=== PATIENT | female | born 1985 | race Caucasian/White ===

== ENCOUNTER 2017-11-02 12:05 | Emergency (ER) | payer BC ==
[2017-11-02 13:20] VITALS: BP 116/72
--- NOTE | 2017-11-02 14:24 | UC ---
Respiratory Complaint HPI - HPI Summary HPI Summary: 32F presents with cough for past couple days. She states initially the cough was dry and today is started to become productive. She denies any other symptoms. She denies any sore throat, sinus congestion, headache, fever, abdominal pain, SOB, chest pain, fatigue. She denies any n/v. She tried some otc cough medication with some relief. She does not smoke and she has no medical conditions. - History of Current Complaint Chief Complaint: UCRespiratory Stated Complaint: COUGH Time Seen by Provider: 11/02/17 14:18 Hx Last Menstrual Period: LAST WEEK Pain Intensity: 0 - Allergies/Home Medications Allergies/Adverse Reactions: Allergies Allergy/AdvReac Type Severity Reaction Status Date / Time No Known Allergies Allergy Verified 11/02/17 13:16 PMH/Surg Hx/FS Hx/Imm Hx Endocrine History: Other Other Endocrine History: no DM Respiratory History: Other Other Respiratory History: no asthma - Surgical History Surgical History: Yes Surgery Procedure, Year, and Place: T&A. Tubal ligation - Family History Known Family History: Negative: Respiratory Disease - Social History Alcohol Use: Occasionally Substance Use Type: None Smoking Status (MU): Never Smoked Tobacco - Immunization History Most Recent Influenza Vaccination: NOT THIS YR Most Recent Tetanus Shot: WITHIN RECENT PAST Review of Systems Constitutional: Negative Respiratory: Cough Cardiovascular: Negative All Other Systems Reviewed And Are Negative: Yes Physical Exam Triage Information Reviewed: Yes Appearance: Well-Appearing Vital Signs: Initial Vital Signs Temp 98 F 11/02/17 13:16 Pulse 60 11/02/17 13:16 Resp 16 11/02/17 13:16 BP 116/72 11/02/17 13:16 Pulse Ox 100 11/02/17 13:16 Vital Signs Reviewed: Yes Eyes: Positive: Conjunctiva Clear ENT: Positive: Normal ENT inspection, Pharynx normal, TMs normal Neck: Positive: Supple, Nontender, No Lymphadenopathy Respiratory: Positive: Lungs clear, Normal breath sounds, Other: - egophony Cardiovascular: Positive: RRR Abdomen Description: Positive: Nontender, Soft Bowel Sounds: Positive: Present Musculoskeletal Exam: Normal Neurological Exam: Normal Psychological Exam: Normal Skin Exam: Normal UC Diagnostic Evaluation - Laboratory O2 Sat by Pulse Oximetry: 100 Respiratory Course/Dx - Course Course Of Treatment: 32F presents with cough for past couple days. She states initially the cough was dry and today is started to become productive. She denies any other symptoms. She denies any sore throat, sinus congestion, headache, fever, abdominal pain, SOB, chest pain, fatigue. She denies any n/v. She tried some otc cough medication with some relief. She does not smoke and she has no medical conditions. on exam lungs CTA. neg egophony. due not suspect flu. will treat with tessalon. patient understand and agrees with plan. - Differential Dx/Diagnosis Differential Diagnosis/HQI/PQRI: Bronchitis, Influenza, Lower Resp Infection Provider Diagnoses: bronchitis Discharge - Discharge Plan Condition: Good Disposition: HOME Prescriptions: Benzonatate CAP* [Tessalon 100 MG CAP*] 100 mg PO TID #21 cap Patient Education Materials: Acute Bronchitis (ED) Referrals: Tyrese Emery DO [Primary Care Provider] - Additional Instructions: Use Tessalon three times a day for cough Use humidifier or place warm bowls of water around the room for cough Cough can last up to 4 weeks Follow up with primary care physician in 5 days Return to ED if develop any new or worsening symptoms
== END 2017-11-02 14:42 | disposition home or self-care (01) ==
LOC: UCCORT 12:05
DX: J40 Bronchitis, not specified as acute or chronic (principal)
CPT/HCPCS: 99212; G0463

== ENCOUNTER 2018-02-24 10:04 | Emergency (ER) | payer BC ==
[2018-02-24 10:33] VITALS: BP 111/63
--- NOTE | 2018-02-24 10:52 | UC ---
General HPI - HPI Summary HPI Summary: 1 year old piercing R nare that got red 3 days ago. pt removed piercing on day 2. area still red and swelling despite saline flush and peroxide tx's. pt squeezed puss from site. no hx DM or MRSA. area continues to swell. no fever. - History of Current Complaint Chief Complaint: UCSkin Stated Complaint: SKIN COMPLAINT Time Seen by Provider: 02/24/18 10:45 Hx Obtained From: Patient Hx Last Menstrual Period: 02/01/18 Onset/Duration: Gradual Onset Timing: Constant Pain Intensity: 4 Aggravating: nothing Alleviating: nothing Associated Signs & Symptoms: Negative: Fever - Allergy/Home Medications Allergies/Adverse Reactions: Allergies Allergy/AdvReac Type Severity Reaction Status Date / Time No Known Allergies Allergy Verified 02/24/18 10:33 PMH/Surg Hx/FS Hx/Imm Hx Previously Healthy: Yes - Surgical History Surgical History: Yes Surgery Procedure, Year, and Place: T&A. Tubal ligation - Family History Known Family History: Positive: None Negative: Respiratory Disease - Social History Occupation: Employed Full-time Lives: With Family Alcohol Use: Occasionally Substance Use Type: None Smoking Status (MU): Never Smoked Tobacco - Immunization History Most Recent Influenza Vaccination: NOT THIS YR Most Recent Tetanus Shot: WITHIN RECENT PAST Vaccination Up to Date: Yes Review of Systems Constitutional: Negative Skin: Rash - R nare Eyes: Negative ENT: Negative Respiratory: Negative Cardiovascular: Negative Gastrointestinal: Negative Genitourinary: Negative Motor: Negative Neurovascular: Negative Musculoskeletal: Negative Neurological: Negative Psychological: Negative Is Patient Immunocompromised?: No All Other Systems Reviewed And Are Negative: No Physical Exam Triage Information Reviewed: Yes Appearance: Well-Appearing Vital Signs: Initial Vital Signs Temp 99.3 F 02/24/18 10:27 Pulse 75 02/24/18 10:27 Resp 18 02/24/18 10:27 BP 111/63 02/24/18 10:27 Pulse Ox 100 02/24/18 10:27 Vital Signs Reviewed: Yes Eyes: Positive: Conjunctiva Clear ENT: Positive: Pharynx normal, TMs normal, Other - Exteral R nare with mild swelling, erythema and weeping clear fluid. Inside R nare swelling and fluctuant with scab at piercing site. Areas are very tender. No auricular adenopathy. Neck: Positive: Supple, Nontender, No Lymphadenopathy Respiratory: Positive: Lungs clear, Normal breath sounds Cardiovascular: Positive: RRR, No Murmur Abdomen Description: Positive: Nontender, No Organomegaly, Soft Bowel Sounds: Positive: Present Musculoskeletal: Positive: ROM Intact Neurological: Positive: Alert Psychological: Positive: Age Appropriate Behavior Skin Exam: Normal Procedures - Procedure Summary Procedure Summary: Time out. site prep betadine. local with 1% lidocaine and 30G needle with 0.3ml into piercing hole. pressure on nare expressed a drop of puss=cultured. Tip of 18 G needle used to unroff scab inside the nare. pressure to outside and inside the nare failed to drain any additional puss. only scant bleeding that stopped. Course/Dx - Course Course Of Treatment: abscess R nare with cellulitis external nare. unable to draine. will refer to ent. pt requesting Dr Velásquez where they are established. paged Dr Velásquez, he returned my call and will see pt 8am tomorrow. he request I start pt on Clindamycin, - Differential Dx - Multi-Symptom Provider Diagnoses: Abscess R nare. Cellulitis R external nare. Discharge - Sign-Out/Discharge Documenting (check all that apply): Discharge/Admit/Transfer - Discharge Plan Condition: Stable Disposition: HOME Prescriptions: Clindamycin Cap(NF) [Clindamycin Cap 300 mg Cap(NF)] 300 mg PO TID #21 cap Patient Education Materials: Cellulitis (ED), Abscess (ED) Forms: *Work Release Referrals: Tyrese Emery DO [Primary Care Provider] - If Needed Bereket Velásquez MD [Medical Doctor] - Additional Instructions: FOLLOW UP DR VELÁSQUEZ 8AM TOMORROW (Sunday02/25/18) SCHEDULED BY [facility]. CALL SOONER FOR ANY CONCERNS - Billing Disposition and Condition Condition: STABLE Disposition: HOME
[2018-02-24] MEDS ORDERED: Lidocaine 1% MPF* 2 ML VIAL INJ ONE (11:06)
[2018-02-24] MEDS ORDERED: Ibuprofen ADULT LIQ* 600 MG/30 ML UDC PO ONE (11:07)
[2018-02-24] MEDS ORDERED: Acetaminophen TAB* 325 MG PO ONE (11:07)
--- NOTE | 2018-02-28 07:07 | UC ---
- Progress Note Progress Note: please call patient -notify her of culture results -make sure she has seen ENT as instructed -if worse needs to go to ER -these culture results need to go to her ENT if still on bactrim needs to be changed to cipro or levaquin -let me know (or provider on duty know) if she needs to have RX sent in Discharge - Sign-Out/Discharge Documenting (check all that apply): Discharge/Admit/Transfer, Post-Discharge Follow Up - Discharge Plan Condition: Stable Disposition: HOME Prescriptions: Clindamycin Cap(NF) [Clindamycin Cap 300 mg Cap(NF)] 300 mg PO TID #21 cap Patient Education Materials: Cellulitis (ED), Abscess (ED) Forms: *Work Release Referrals: Bereket Velásquez MD [Medical Doctor] - Tyrese Emery DO [Primary Care Provider] - If Needed Additional Instructions: FOLLOW UP DR VELÁSQUEZ 8AM TOMORROW (Sunday02/25/18) SCHEDULED BY [facility]. CALL SOONER FOR ANY CONCERNS - Billing Disposition and Condition Condition: STABLE Disposition: HOME
== END 2018-02-24 11:51 | disposition home or self-care (01) ==
LOC: UCCORT 10:04
DX: J34.0 Abscess, furuncle and carbuncle of nose (principal)
CPT/HCPCS: 30000; 87070; 87077; 87186; 87205; 87640; 87641; 99212; A9270-GY; G0463